=== PATIENT | male | born 1940 | race Hispanic/Latino ===

== ENCOUNTER 2022-03-19 13:58 | Inpatient (IN) | payer MEDICARE, MEDICAID ==
[2022-03-19 14:59] LABS: Bilirubin Neg (Negative); Blood, Urine Negative (Negative); Clarity Clear (Clear); Glucose, Urine (Dipstick) Normal (Negative); Ketone, Urine Negative (Negative); Leukocyte Negative (Negative); Nitrite Negative (Negative); Protein, Urine (Dipstick) Negative (Neg-Trace); Urobilinogen Normal mg/dL (Less than 2)
[2022-03-19 15:37] LABS: #Neutrophils 10.2 10x3/uL (1.5-8.4); %Basophils 0.3 % (0.0-2.0); %Eosinophils 0.1 % (0.0-6.0); %Lymphocytes 9.9 % (18.0-47.0); %Monocytes 8.1 % (0.0-10.0); %Neutrophils 81.3 % (40.0-75.0); Hemoglobin 13.1 g/dL (13.5-17.5); Mean Corpuscular HGB CONC 33.5 g/dL (32.0-36.0); Mean Corpuscular Volume 89.5 fl (81.2-95.1); Mean Platelet Volume 9.7 fl (7.4-10.4); Platelet Count 167 10x3/uL (150-450); RBC Distribution Width 14.2 % (11.5-14.5); Red Blood Cell (RBC) Count 4.37 10x6/uL (4.32-5.72); White Blood Cell (WBC) Count 12.5 10x3/uL (3.5-10.5)
[2022-03-19 15:50] LABS: ALT (SGPT) 40 U/L (8-55); AST (SGOT) 48 U/L (5-34); Albumin 3.6 g/dL (3.4-4.8); Alkaline Phosphatase 106 U/L (40-110); Anion Gap 14 mmol/L (10-20); BUN (Urea Nitrogen) 17 mg/dL (8.4-25.7); Bilirubin, Total 2.1 mg/dL (0.2-1.2); Calc. Creatinine Clearance 0 mL/min (70-130); Calcium 8.8 mg/dL (7.8-10.44); Carbon Dioxide 21 mmol/L (23-31); Chloride 110 mmol/L (98-107); Globulin 2.1 g/dL (2.4-3.5); Glucose 89 mg/dL (83-110); Potassium 3.9 mmol/L (3.5-5.1); Protein, Total 5.7 g/dL (5.8-8.1); Sodium 141 mmol/L (136-145)
[2022-03-19] MEDS ORDERED: Ondansetron PF 4 MG/2 ML Vial IVP PRN (18:42)
[2022-03-19] MEDS ORDERED: Acetaminophen 650 MG Suppository PR PRN (18:42)
[2022-03-19] MEDS ORDERED: Ondansetron ODT 4 MG TAB PO PRN (18:42)
[2022-03-19] MEDS ORDERED: hydrALAZINE 20 MG/ML VIAL SLOW IVP PRN (18:45)
[2022-03-19] MEDS ORDERED: Enoxaparin Sodium 40 MG/0.4 ML SYRINGE SC SCH (20:00)
[2022-03-19] MEDS: Acetaminophen 325 MG TAB PO PRN (22:05)
[2022-03-19] MEDS: Donepezil HCl 5 MG TAB PO SCH (22:06)
[2022-03-19] MEDS: Rosuvastatin 20 MG TAB PO SCH (22:06)
[2022-03-19 22:08] LABS: CKMB 16.9 ng/mL (0-6.6)
[2022-03-19 22:47] VITALS: BMI 26.9
[2022-03-20 08:28] LABS: #Monocytes 0.9 10x3/uL (0.0-1.1); #Neutrophils 5.1 10x3/uL (1.5-8.4); %Basophils 0.5 % (0.0-2.0); %Eosinophils 0.5 % (0.0-6.0); %Lymphocytes 17.8 % (18.0-47.0); %Monocytes 12.4 % (0.0-10.0); %Neutrophils 68.5 % (40.0-75.0); Hemoglobin 12.3 g/dL (13.5-17.5); Mean Corpuscular HGB CONC 32.8 g/dL (32.0-36.0); Mean Corpuscular Hemoglobin 29.5 pg (27.0-33.0); Mean Corpuscular Volume 89.9 fl (81.2-95.1); Mean Platelet Volume 9.9 fl (7.4-10.4); Platelet Count 151 10x3/uL (150-450); RBC Distribution Width 14.3 % (11.5-14.5); Red Blood Cell (RBC) Count 4.17 10x6/uL (4.32-5.72); White Blood Cell (WBC) Count 7.5 10x3/uL (3.5-10.5)
[2022-03-20 08:34] LABS: ALT (SGPT) 32 U/L (8-55); AST (SGOT) 38 U/L (5-34); Alkaline Phosphatase 90 U/L (40-110); Anion Gap 12 mmol/L (10-20); BUN (Urea Nitrogen) 15 mg/dL (8.4-25.7); Calc. Creatinine Clearance 91 mL/min (70-130); Calcium 8.8 mg/dL (7.8-10.44); Carbon Dioxide 25 mmol/L (23-31); Cardiac Risk 2.5 (Less than 4.5); Chloride 109 mmol/L (98-107); Cholesterol 104 mg/dl (< 200 Desired); Glucose 78 mg/dL (83-110); HDL Cholesterol 41 mg/dL (>60 Neg Risk); LDL Cholesterol, Calculated 49 mg/dL; Magnesium 1.8 mg/dL (1.6-2.6); Potassium 3.9 mmol/L (3.5-5.1); Sodium 142 mmol/L (136-145); Triglycerides 70 mg/dL (Less than 150)
[2022-03-20] MEDS: Aspirin 81 mg Enteric Coated Tablet PO SCH (08:39)
[2022-03-20] MEDS ORDERED: Enoxaparin Sodium 40 MG/0.4 ML SYRINGE SC SCH (09:00)
[2022-03-20 12:06] LABS: Hemoglobin A1c 5.3 % (4.0-6.0)
[2022-03-20] MEDS ORDERED: BUPRENORPHINE 5 MCG TOP SCH (19:30)
[2022-03-20] MEDS ORDERED: Albuterol Sulfate 2.5 mg/3 ml Neb NEB PRN (19:55)
[2022-03-20] MEDS: Acetaminophen 325 MG TAB PO PRN (21:51)
[2022-03-20] MEDS: Apixaban 5 MG TAB PO SCH (21:52)
[2022-03-20] MEDS: Ferrous Sulfate 325 MG TAB PO SCH (21:52)
[2022-03-20] MEDS: Donepezil HCl 5 MG TAB PO SCH (21:52)
[2022-03-20] MEDS: Rosuvastatin 20 MG TAB PO SCH (21:52)
[2022-03-21 05:07] LABS: ALT (SGPT) 31 U/L (8-55); AST (SGOT) 32 U/L (5-34); Alkaline Phosphatase 84 U/L (40-110); Anion Gap 11 mmol/L (10-20); BUN (Urea Nitrogen) 13 mg/dL (8.4-25.7); Bilirubin, Direct 0.6 mg/dL (0.1-0.3); Bilirubin, Total 1.4 mg/dL (0.2-1.2); Calc. Creatinine Clearance 91 mL/min (70-130); Calcium 8.6 mg/dL (7.8-10.44); Carbon Dioxide 23 mmol/L (23-31); Chloride 110 mmol/L (98-107); Glucose 90 mg/dL (83-110); Lipase 25 U/L (8-78); Magnesium 1.7 mg/dL (1.6-2.6); Potassium 3.4 mmol/L (3.5-5.1); Protein, Total 5.4 g/dL (5.8-8.1); Sodium 141 mmol/L (136-145)
[2022-03-21 05:19] LABS: Syphilis Antibody Nonreactive (Nonreactive); Syphilis Antibody Index 0.06 S/CO (<1.00 Non-Reactive)
[2022-03-21 05:59] LABS: #Eosinphils 0.1 10x3/uL (0.0-0.5); #Monocytes 0.9 10x3/uL (0.0-1.1); #Neutrophils 4.6 10x3/uL (1.5-8.4); %Basophils 0.6 % (0.0-2.0); %Lymphocytes 19.3 % (18.0-47.0); %Monocytes 12.5 % (0.0-10.0); %Neutrophils 66.3 % (40.0-75.0); Hemoglobin 12.7 g/dL (13.5-17.5); Mean Corpuscular HGB CONC 34.7 g/dL (32.0-36.0); Mean Corpuscular Hemoglobin 29.7 pg (27.0-33.0); Mean Corpuscular Volume 86.1 fl (81.2-95.1); Mean Platelet Volume 9.8 fl (7.4-10.4); Platelet Count 168 10x3/uL (150-450); RBC Distribution Width 14.3 % (11.5-14.5); Red Blood Cell (RBC) Count 4.27 10x6/uL (4.32-5.72); White Blood Cell (WBC) Count 6.9 10x3/uL (3.5-10.5)
[2022-03-21] MEDS: Acetaminophen 325 MG TAB PO PRN (06:14)
[2022-03-21] MEDS: Ferrous Sulfate 325 MG TAB PO SCH ×3 (08:03→22:00)
[2022-03-21] MEDS: Losartan Potassium 50 MG TAB PO SCH (08:04)
[2022-03-21] MEDS: Apixaban 5 MG TAB PO SCH ×2 (08:04→22:00)
[2022-03-21] MEDS: Dronedarone HCl 400 MG TAB PO SCH ×2 (08:04→16:25)
[2022-03-21] MEDS: Aspirin 81 mg Enteric Coated Tablet PO SCH (08:04)
[2022-03-21] MEDS: predniSONE 1 MG TAB PO SCH (08:04)
[2022-03-21] MEDS ORDERED: Potassium Chloride 20 MEQ TAB PO SCH (09:00)
[2022-03-21] MEDS ORDERED: Iopamidol 300 61% 100 ML VIAL FS ONE (10:18)
[2022-03-21] MEDS: cefTRIAXone\\ROCEPHIN 2 GM in Sodium Chloride 0.9% 100 ML IVPB SCH (17:53)
[2022-03-21] MEDS: Azithromycin 250 MG TAB PO SCH (17:53)
[2022-03-21] MEDS ORDERED: Cyanocobalamin 1000 MCG/ML VIAL IM SCH (21:00)
[2022-03-21] MEDS: Donepezil HCl 5 MG TAB PO SCH (22:00)
[2022-03-21] MEDS: Magnesium Gluconate 500 MG TAB PO SCH (22:00)
[2022-03-21] MEDS: Melatonin 3 MG TAB PO SCH (22:00)
[2022-03-21] MEDS: Rosuvastatin 20 MG TAB PO SCH (22:00)
[2022-03-22 04:34] LABS: #Eosinphils 0.1 10x3/uL (0.0-0.5); #Monocytes 1.1 10x3/uL (0.0-1.1); #Neutrophils 6.7 10x3/uL (1.5-8.4); %Basophils 0.3 % (0.0-2.0); %Eosinophils 0.9 % (0.0-6.0); %Lymphocytes 18.7 % (18.0-47.0); %Neutrophils 68.8 % (40.0-75.0); Hemoglobin 13.5 g/dL (13.5-17.5); Mean Corpuscular HGB CONC 34.4 g/dL (32.0-36.0); Mean Corpuscular Hemoglobin 29.3 pg (27.0-33.0); Mean Platelet Volume 9.4 fl (7.4-10.4); Platelet Count 192 10x3/uL (150-450); RBC Distribution Width 14.4 % (11.5-14.5); Red Blood Cell (RBC) Count 4.61 10x6/uL (4.32-5.72); White Blood Cell (WBC) Count 9.7 10x3/uL (3.5-10.5)
[2022-03-22 04:48] LABS: Anion Gap 12 mmol/L (10-20); BUN (Urea Nitrogen) 12 mg/dL (8.4-25.7); Calc. Creatinine Clearance 88 mL/min (70-130); Calcium 9.1 mg/dL (7.8-10.44); Carbon Dioxide 22 mmol/L (23-31); Chloride 111 mmol/L (98-107); Glucose 98 mg/dL (83-110); Magnesium 1.9 mg/dL (1.6-2.6); Potassium 3.9 mmol/L (3.5-5.1); Sodium 141 mmol/L (136-145)
[2022-03-22 05:10] LABS: HIV (1/2) Antibody/Antigen Non-Reactive (NonReactive); HIV 1/2 INDEX 0.05 S/CO (<1.00)
[2022-03-22] MEDS ORDERED: Potassium Chloride 20 MEQ TAB PO SCH (07:30)
[2022-03-22] MEDS ORDERED: Magnesium 2 GM/50 ML(in water) 2 GM in Premix Bag 1 BAG IVPB SCH (07:30)
[2022-03-22] MEDS: Ferrous Sulfate 325 MG TAB PO SCH ×3 (10:23→21:03)
[2022-03-22] MEDS: Dronedarone HCl 400 MG TAB PO SCH ×2 (10:23→18:41)
[2022-03-22] MEDS: Saccharomyces boulardii 250 MG CAP PO SCH (10:23)
[2022-03-22] MEDS: Apixaban 5 MG TAB PO SCH ×2 (10:24→21:02)
[2022-03-22] MEDS: predniSONE 1 MG TAB PO SCH (10:24)
[2022-03-22] MEDS: Losartan Potassium 50 MG TAB PO SCH (10:25)
[2022-03-22] MEDS: Azithromycin 250 MG TAB PO SCH (18:40)
[2022-03-22] MEDS: cefTRIAXone\\ROCEPHIN 2 GM in Sodium Chloride 0.9% 100 ML IVPB SCH (18:45)
[2022-03-22] MEDS: Rosuvastatin 20 MG TAB PO SCH (21:01)
[2022-03-22] MEDS: Magnesium Gluconate 500 MG TAB PO SCH (21:02)
[2022-03-22] MEDS: Donepezil HCl 5 MG TAB PO SCH (21:02)
[2022-03-22] MEDS: Melatonin 3 MG TAB PO SCH (21:02)
[2022-03-22] MEDS: Senokot S 8.6-50 MG TAB PO SCH (21:03)
[2022-03-22] MEDS: Acetaminophen 325 MG TAB PO PRN (21:05)
[2022-03-23 05:01] LABS: #Basophils 0.1 10x3/uL (0.0-0.2); #Eosinphils 0.1 10x3/uL (0.0-0.5); #Monocytes 0.9 10x3/uL (0.0-1.1); #Neutrophils 4.9 10x3/uL (1.5-8.4); %Basophils 0.7 % (0.0-2.0); %Eosinophils 1.6 % (0.0-6.0); %Lymphocytes 31.2 % (18.0-47.0); %Monocytes 9.9 % (0.0-10.0); %Neutrophils 56.3 % (40.0-75.0); Mean Corpuscular HGB CONC 34.7 g/dL (32.0-36.0); Mean Corpuscular Hemoglobin 29.7 pg (27.0-33.0); Mean Corpuscular Volume 85.8 fl (81.2-95.1); Mean Platelet Volume 9.5 fl (7.4-10.4); Platelet Count 215 10x3/uL (150-450); RBC Distribution Width 14.6 % (11.5-14.5); Red Blood Cell (RBC) Count 4.71 10x6/uL (4.32-5.72); White Blood Cell (WBC) Count 8.7 10x3/uL (3.5-10.5)
[2022-03-23 05:13] LABS: Anion Gap 13 mmol/L (10-20); BUN (Urea Nitrogen) 17 mg/dL (8.4-25.7); Calc. Creatinine Clearance 74 mL/min (70-130); Calcium 9.2 mg/dL (7.8-10.44); Carbon Dioxide 22 mmol/L (23-31); Chloride 110 mmol/L (98-107); Glucose 87 mg/dL (83-110); Magnesium 2.2 mg/dL (1.6-2.6); Potassium 4.1 mmol/L (3.5-5.1); Sodium 141 mmol/L (136-145)
[2022-03-23] MEDS: Apixaban 5 MG TAB PO SCH ×2 (08:45→20:45)
[2022-03-23] MEDS: Ferrous Sulfate 325 MG TAB PO SCH ×3 (08:45→20:45)
[2022-03-23] MEDS: Saccharomyces boulardii 250 MG CAP PO SCH (08:45)
[2022-03-23] MEDS: Senokot S 8.6-50 MG TAB PO SCH ×2 (08:45→20:50)
[2022-03-23] MEDS: predniSONE 1 MG TAB PO SCH (08:45)
[2022-03-23] MEDS: Losartan Potassium 50 MG TAB PO SCH (08:45)
[2022-03-23] MEDS: Dronedarone HCl 400 MG TAB PO SCH ×2 (08:45→17:05)
[2022-03-23] MEDS: Cyanocobalamin (Vitamin B-12) 1,000 MCG TAB PO SCH (08:45)
[2022-03-23] MEDS: Azithromycin 250 MG TAB PO SCH (17:05)
[2022-03-23] MEDS: cefTRIAXone\\ROCEPHIN 2 GM in Sodium Chloride 0.9% 100 ML IVPB SCH (17:05)
[2022-03-23] MEDS: Melatonin 3 MG TAB PO SCH (20:45)
[2022-03-23] MEDS: Magnesium Gluconate 500 MG TAB PO SCH (20:45)
[2022-03-23] MEDS: Rosuvastatin 20 MG TAB PO SCH (20:45)
[2022-03-24 05:27] LABS: Anion Gap 13 mmol/L (10-20); BUN (Urea Nitrogen) 20 mg/dL (8.4-25.7); Calc. Creatinine Clearance 77 mL/min (70-130); Calcium 8.7 mg/dL (7.8-10.44); Carbon Dioxide 22 mmol/L (23-31); Chloride 111 mmol/L (98-107); Glucose 83 mg/dL (83-110); Magnesium 2.1 mg/dL (1.6-2.6); Potassium 3.8 mmol/L (3.5-5.1); Sodium 142 mmol/L (136-145)
[2022-03-24] MEDS ORDERED: Potassium Bicarbonate/Cit Ac 20 MEQ TAB PO SCH (07:30)
[2022-03-24] MEDS: Dronedarone HCl 400 MG TAB PO SCH ×2 (09:10→17:49)
[2022-03-24] MEDS: Apixaban 5 MG TAB PO SCH ×2 (09:11→21:13)
[2022-03-24] MEDS: Cyanocobalamin (Vitamin B-12) 1,000 MCG TAB PO SCH (09:11)
[2022-03-24] MEDS: Ferrous Sulfate 325 MG TAB PO SCH ×3 (09:11→21:13)
[2022-03-24] MEDS: Losartan Potassium 50 MG TAB PO SCH (09:11)
[2022-03-24] MEDS: predniSONE 1 MG TAB PO SCH (09:11)
[2022-03-24] MEDS: Saccharomyces boulardii 250 MG CAP PO SCH (09:11)
[2022-03-24] MEDS: Senokot S 8.6-50 MG TAB PO SCH ×2 (09:12→21:19)
[2022-03-24] MEDS: Azithromycin 250 MG TAB PO SCH (17:49)
[2022-03-24] MEDS: cefTRIAXone\\ROCEPHIN 2 GM in Sodium Chloride 0.9% 100 ML IVPB SCH (17:51)
[2022-03-24] MEDS: Magnesium Gluconate 500 MG TAB PO SCH (21:12)
[2022-03-24] MEDS: Rosuvastatin 20 MG TAB PO SCH (21:13)
[2022-03-24] MEDS: Melatonin 3 MG TAB PO SCH (21:13)
[2022-03-25] MEDS ORDERED: guaiFENesin ER 600 MG TAB PO SCH (09:00)
[2022-03-25] MEDS ORDERED: Benzonatate 100 MG CAP PO SCH (09:00)
[2022-03-25] MEDS: Saccharomyces boulardii 250 MG CAP PO SCH (09:57)
[2022-03-25] MEDS: Senokot S 8.6-50 MG TAB PO SCH (09:57)
[2022-03-25] MEDS: Dronedarone HCl 400 MG TAB PO SCH (09:58)
[2022-03-25] MEDS: Ferrous Sulfate 325 MG TAB PO SCH (09:58)
[2022-03-25] MEDS: Cyanocobalamin (Vitamin B-12) 1,000 MCG TAB PO SCH (09:58)
[2022-03-25] MEDS: Losartan Potassium 50 MG TAB PO SCH (09:58)
[2022-03-25] MEDS: Apixaban 5 MG TAB PO SCH (09:59)
[2022-03-25] MEDS: predniSONE 1 MG TAB PO SCH (09:59)
[2022-03-25 12:21] VITALS: BP 105/66; TEMP 98.5
[2022-03-27] MEDS ORDERED: Ergocalciferol 1.25 MG(50,000 UNITS) CAP PO SCH (08:00)
== END 2022-03-25 14:46 | DRG 70 ==
LOC: CSHERS 13:58 → CSHTELE 18:12 → OBSVTOIN 03-22 14:21
PROVIDERS: ADMIT Family Medicine; ATTEND Family Medicine
DX: G93.41 Metabolic encephalopathy (principal); J18.9 Pneumonia, unspecified organism; I47.1 Supraventricular tachycardia; I10 Essential (primary) hypertension; I48.0 Paroxysmal atrial fibrillation; G30.9 Alzheimer's disease, unspecified; F02.80 Dementia in other diseases classified elsewhere, unspecified severity, without behavioral disturbance, psychotic disturbance, mood disturbance, and anxiety; I25.10 Atherosclerotic heart disease of native coronary artery without angina pectoris; E78.5 Hyperlipidemia, unspecified; K21.9 Gastro-esophageal reflux disease without esophagitis; M06.9 Rheumatoid arthritis, unspecified; W19.XXXA Unspecified fall, initial encounter; F32.A Depression, unspecified; E16.2 Hypoglycemia, unspecified; I49.5 Sick sinus syndrome; Z20.822 Contact with and (suspected) exposure to COVID-19; R63.0 Anorexia; K83.9 Disease of biliary tract, unspecified; Z95.0 Presence of cardiac pacemaker; Z79.82 Long term (current) use of aspirin; Z79.899 Other long term (current) drug therapy; Z79.51 Long term (current) use of inhaled steroids; Z79.01 Long term (current) use of anticoagulants; Z95.5 Presence of coronary angioplasty implant and graft; Z98.890 Other specified postprocedural states; Y92.9 Unspecified place or not applicable; Z68.26 Body mass index [BMI] 26.0-26.9, adult
CPT/HCPCS: 36415; 70450; 71045; 71260; 74177; 80048; 80053; 80061; 81003; 82553; 82607; 82746; 83036; 83605; 83690; 83735; 83880; 84443; 84484; 85025; 86780; 87389; 93005; 93010; 94640; 94760; 96360; 96361; 96372; 96374; 96375; G0378; J0696; J1650; J3475; J3490; J7512; J7620; Q9967; U0003; U0005